=== PATIENT | female | born 1965 | race Caucasian/White ===

== ENCOUNTER 2022-01-08 09:58 | Emergency (ER) | payer OTHER ==
[2022-01-08 10:29] VITALS: BP 141/70; PULSE 65; TEMP 98; BMI 31.7
[2022-01-08] MEDS ORDERED: ACETAMINOPHEN 1000 MG/100 ML BAG IVPB ONE (11:12)
[2022-01-08] MEDS ORDERED: SODIUM CHLORIDE 0.9% 500 ML INFUS.BAG IV ONE (11:12)
[2022-01-08] MEDS ORDERED: MECLIZINE HCL 25 MG TABLET (FP) PO ONE (11:13)
[2022-01-08] MEDS ORDERED: amLODIPine BESYLATE 2.5 MG TABLET (FP) PO ONE (11:16)
[2022-01-08] MEDS ORDERED: amLODIPine BESYLATE 2.5 MG TABLET (FP) ONE (11:18)
[2022-01-08] MEDS ORDERED: MECLIZINE HCL 25 MG TABLET (FP) ONE (11:18)
[2022-01-08] MEDS ORDERED: ACETAMINOPHEN INJECTION 100 ML IVPB ONE (11:18)
[2022-01-08 11:49] LABS: BASO % 1.4 % (0-2.0); EOS % 2.8 % (0-4.5); HEMATOCRIT 38.6 % (32.4-45.2); HEMOGLOBIN 12.8 GM/dL (10.7-15.3); MCH 28.3 pg (25.7-33.7); MCHC 33.1 g/dl (32.0-36.0); MEAN CELL VOLUME 85.4 fl (80-96); MEAN PLT VOLUME 7.7 fl (7.5-11.1); MONO % 7.5 % (3.8-10.2); NEUT % 62.3 % (42.8-82.8); PLATELET COUNT 367 10^3/uL (134-434); RBC 4.52 M/mm3 (3.60-5.2); RDW 13.3 % (11.6-15.6); WHITE BLOOD COUNT 4.2 K/mm3 (4.0-10.0)
[2022-01-08 12:22] LABS: BLOOD UREA NITROGEN 15.2 mg/dL (7-18); CALCIUM 9.6 mg/dL (8.5-10.1); MAGNESIUM 2.6 mg/dL (1.8-2.4)
[2022-01-08 12:23] LABS: PHOSPHOROUS 3.7 mg/dL (2.5-4.9)
[2022-01-08 12:24] LABS: CREATININE 0.6 mg/dL (0.55-1.3)
[2022-01-08 12:25] LABS: BILIRUBIN,TOTAL 0.5 mg/dL (0.2-1); TOT PROT 7.5 g/dl (6.4-8.2)
== END 2022-01-08 15:01 | disposition home or self-care (01) ==
LOC: JER 09:58
PROC: 3E033GC Introduction of Other Therapeutic Substance into Peripheral Vein, Percutaneous Approach (ICD-10-PCS; principal; 2022-01-08)
DX: R42 Dizziness and giddiness (principal); R51.9 Headache, unspecified; H53.8 Other visual disturbances
CPT/HCPCS: 36415; 70450-TC; 71045-TC-FY; 80053; 83735; 84100; 84439; 84443; 84484; 85025; 93005; 93010; 96374; 99285-25

== ENCOUNTER 2022-03-17 14:44 | Emergency (ER) | payer OTHER ==
[2022-03-17 15:18] VITALS: BP 145/78; PULSE 84; RESP 16; TEMP 97.8; BMI 31.2
== END 2022-03-17 15:51 | disposition home or self-care (01) ==
LOC: FER 14:44
DX: M76.61 Achilles tendinitis, right leg (principal)
CPT/HCPCS: 99283-25; 99284-25